=== PATIENT | male | born 2000 ===

== ENCOUNTER 2020-09-14 13:21 | Emergency (ER) | payer SELFPAY ==
[2020-09-14 14:36] VITALS: BP 117/69
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
== END 2020-09-14 15:11 | disposition left against medical advice (07) ==
LOC: ED 13:21
DX: M25.522 Pain in left elbow (principal); M25.562 Pain in left knee; M25.561 Pain in right knee; V49.49XA Driver injured in collision with other motor vehicles in traffic accident, initial encounter; Y92.410 Unspecified street and highway as the place of occurrence of the external cause; Y93.89 Activity, other specified; Y99.8 Other external cause status
CPT/HCPCS: 99283